=== PATIENT | female | born 1995 | race Caucasian/White ===

== ENCOUNTER 2018-02-04 03:00 | Emergency (ER) | payer BC, OTHER ==
[2018-02-04] MEDS ORDERED: predniSONE 20 MG TABLET (UD) PO ONE (03:15)
[2018-02-04] MEDS ORDERED: ALBUTEROL SO4 2.5/IPRATROPIUM 0.5 INH SOL 3 ML VIAL.NEB. NEB ONE ×2 (03:15→03:34)
[2018-02-04 03:19] VITALS: BP 125/78; TEMP 100.6; BMI 23.0
[2018-02-04] MEDS ORDERED: predniSONE 20 MG TABLET (UD) ONE (03:34)
[2018-02-04 03:43] VITALS: PULSE 77
--- NOTE | 2018-02-04 03:45 | PDOC ---
Attending Attestation - Resident Resident Name: Norberto Wynn - ED Attending Attestation I have performed the following: I have examined & evaluated the patient, The case was reviewed & discussed with the resident, I agree w/resident's findings & plan - HPI HPI: 02/04/18 05:22 The patient is a 23 year old female, with a significant past medical history of asthma, who presents to the emergency department with, shortness of breath. As per patient she was at a club tonight when she smoked hookah at the club when she began to feel short of breath. The patient admits to drinking a cup of liquor today and feeling wheezing earlier in the day. As per EMS, she was given albuterol. She denies recent fevers, chills, headache or dizziness. She denies recent nausea, vomit, diarrhea or constipation. She denies recent dysuria, frequency, urgency or hematuria. She denies recent chest pain. Allergies: NKA - Physicial Exam PE: 02/04/18 06:29 GENERAL: Awake, alert, and fully oriented, in no acute distress HEAD: No signs of trauma NECK: Normal ROM, supple, no lymphadenopathy, JVD, or masses +LUNGS: Diffuse bilateral coarse breath sounds. No crackles HEART: Regular rate and rhythm, normal S1 and S2, no murmurs, rubs or gallops ABDOMEN: Soft, nontender, normoactive bowel sounds. No guarding, no rebound. No masses EXTREMITIES: Normal range of motion, no edema. No clubbing or cyanosis. No cords, erythema, or tenderness NEUROLOGICAL: Cranial nerves II through XII grossly intact. Normal speech, normal gait SKIN: Warm, Dry, normal turgor, no rashes or lesions noted. <Adalid Hager - Last Filed: 02/04/18 06:29> - Medical Decision Making 02/04/18 20:26 Pt with asthma exacerbation after smoking hookah tonight. Improved in the ER with treatment. Stable for discharge. Still mild bilat wheeze. She will be sent home with prednisone. Follow with PMD. <Vandana Ac - Last Filed: 02/04/18 20:27> Attestations - Attestations 02/04/18 05:22 Documentation prepared by Adalid Hager, acting as medical records receptionist for Vandana Ac MD. <Adalid Hager - Last Filed: 02/04/18 06:29>
[2018-02-04] MEDS ORDERED: ACETAMINOPHEN 325 MG TABLET (FP) PO ONE (03:55)
--- NOTE | 2018-02-04 03:57 | PDOC ---
History of Present Illness - General Chief Complaint: Shortness of Breath Stated Complaint: DIFFICULTY BREATHING Time Seen by Provider: 02/04/18 03:08 History Source: Patient Exam Limitations: No Limitations - History of Present Illness Initial Comments: 02/04/18 03:52 Patient is a 23F with a history of asthma (no intubations, one prior hospitalizations) here today complaining of shortness of breath. The patient was at a [place] [employer] and was smoking hookah after noticing some wheezing earlier in the day. She has had a cough as well. Patient reports some chest pain with the cough. LMP today. Given albuterol in the field by EMS. Denies fevers, chills, nausea, vomiting. Denies history of blood clots. Endorses drinking a "cup" of liquor. Past History - Past Medical History Allergies/Adverse Reactions: Allergies Allergy/AdvReac Type Severity Reaction Status Date / Time No Known Allergies Allergy Verified 02/04/18 03:19 Home Medications: Ambulatory Orders Pnv95/Iron Fum/Folic Acid [ Caplet] 1 each PO DAILY 06/05/16 Albuterol Sulfate Inhaler - [Ventolin HFA Inhaler -] 1 - 2 inh PO QID #1 inhaler 02/04/18 Prednisone [Prednisone 50 MG TABLETS] 50 mg PO DAILY #2 tablet 02/04/18 - Suicide/Smoking/Psychosocial Hx Smoking History: Never smoked Have you smoked in the past 12 months: No Information on smoking cessation initiated: No Hx Alcohol Use: No Drug/Substance Use Hx: No Review of Systems - Review of Systems Comments:: 02/04/18 03:54 GENERAL/CONSTITUTIONAL: No fever or chills. No weakness. HEAD, EYES, EARS, NOSE AND THROAT: No change in vision. No sore throat. CARDIOVASCULAR: +chest pain +shortness of breath RESPIRATORY: No cough, +wheezing, no hemoptysis. GASTROINTESTINAL: No nausea, vomiting, diarrhea or constipation. GENITOURINARY: No dysuria, frequency, or change in urination. MUSCULOSKELETAL: No joint or muscle swelling or pain. No neck or back pain. SKIN: No rash NEUROLOGIC: No headache, vertigo, loss of consciousness, or change in strength/ sensation. ENDOCRINE: No increased thirst. No abnormal weight change HEMATOLOGIC/LYMPHATIC: No anemia, easy bleeding, or history of blood clots. ALLERGIC/IMMUNOLOGIC: No hives or skin allergy. *Physical Exam - Vital Signs Last Vital Signs Temp Pulse Resp BP Pulse Ox 100.6 F H 77 22 125/78 98 02/04/18 03:00 02/04/18 03:01 02/04/18 03:00 02/04/18 03:00 02/04/18 03:01 - Physical Exam Comments: 02/04/18 03:55 GENERAL: Awake, alert, and fully oriented, in no acute distress HEAD: No signs of trauma, normocephalic, atraumatic EYES: PERRLA, EOMI, sclera anicteric, conjunctiva clear ENT: Auricles normal inspection, hearing grossly normal, nares patent, oropharynx clear without exudates. Moist mucosa NECK: Normal ROM, supple, no lymphadenopathy, JVD, or masses LUNGS: No distress, speaks full sentences, scattered wheezes bilaterally. HEART: Regular rate and rhythm, normal S1 and S2, no murmurs, rubs or gallops, peripheral pulses normal and equal bilaterally. ABDOMEN: Soft, nontender, normoactive bowel sounds. No guarding, no rebound. No masses EXTREMITIES: Normal inspection, Normal range of motion, no edema. No clubbing or cyanosis. NEUROLOGICAL: Cranial nerves II through XII grossly intact. Normal speech, normal gait, no focal sensorimotor deficits SKIN: Warm, Dry, normal turgor, no rashes or lesions noted. ED Treatment Course - Medications Given in the ED: ED Medications Discontinued Medications Generic Name Dose Route Start Last Admin Trade Name Freq PRN Reason Stop Dose Admin Albuterol/Ipratropium 2 amp 02/04/18 03:15 02/04/18 03:40 Duoneb - NEB 02/04/18 03:16 2 amp ONCE ONE Administration Prednisone 60 mg 02/04/18 03:15 02/04/18 03:40 Deltasone - PO 02/04/18 03:16 60 mg ONCE ONE Administration Medical Decision Making - Medical Decision Making 02/04/18 03:56 Patient is 23F with history of asthma here today with shortness of breath. Febrile and tachycardic but appears well. Will treat with duonebs and tylenol. Will evaluate with upreg and chest x-ray for possible pneumonia. Do not believe that patient has PE given diffuse wheezing, history of asthma, fever. 02/04/18 05:51 Patient reassessed, resting comfortably. One wheeze heard during exam. 02/04/18 06:11 Patient reassessed, resting comfortably. No longer wheezing. CXR clear, upreg negative. Discharged home with new albuterol inhaler and 2 days of prednisone. *DC/Admit/Observation/Transfer Diagnosis at time of Disposition: Asthma exacerbation - Discharge Dispostion Disposition: HOME Condition at time of disposition: Good Decision to Admit order: No - Prescriptions Prescriptions: Albuterol Sulfate Inhaler - [Ventolin HFA Inhaler -] 1 - 2 inh PO QID #1 inhaler Prednisone [Prednisone 50 MG TABLETS] 50 mg PO DAILY #2 tablet - Referrals - Patient Instructions Printed Discharge Instructions: DI for Asthma -- Adult Additional Instructions: Please return if you have any new, worsening or concerning symptoms. Please follow up with your primary care physician this week. - Post Discharge Activity
[2018-02-04] MEDS ORDERED: ACETAMINOPHEN 325 MG TABLET (FP) ONE (04:24)
== END 2018-02-04 06:20 | disposition home or self-care (01) ==
LOC: JER 03:00
PROC: 3E0F7GC Introduction of Other Therapeutic Substance into Respiratory Tract, Via Natural or Artificial Opening (ICD-10-PCS; principal; 2018-02-04)
DX: J45.901 Unspecified asthma with (acute) exacerbation (principal)
CPT/HCPCS: 71046-TC-FY; 84703; 94640; 99281-25; J7620